=== PATIENT | male | born 1975 | race African-American/Black ===

== ENCOUNTER 2024-10-16 14:34 | Emergency (ER) | payer MEDICAID ==
[~2024-10-16] VITALS: Ht 167.6 cm; Wt 80.0 kg
[2024-10-16 14:37] VITALS: BP 127/86; PULSE 100; RESP 16; TEMP 36.8; O2SAT 100
== END 2024-10-16 15:00 | disposition left against medical advice (07) ==
LOC: ER 14:34
DX: R56.9 Unspecified convulsions (principal)
CPT/HCPCS: 99283